=== PATIENT | female | born 1985 | race Caucasian/White ===

== ENCOUNTER 2017-09-05 15:44 | Emergency (ER) | payer OTHER ==
[2017-09-05 16:19] VITALS: O2SAT 99
[2017-09-05 17:05] VITALS: BP 101/68; PULSE 84; RESP 18; TEMP 98.1
--- NOTE | 2017-09-05 17:17 | C.PDOC ---
History Of Present Illness 32yo female, presents to the ED for evaluation of sore throat and malaise present for the past 2 weeks. 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 States she took Robitussin and Tylenol for her symptoms without relief. She also reports an intermittent fever but denies any today. Also reports associated cough with productive green phlegm. She denies any recent foreign travels. Patient offers no other medical complaints. Time Seen by Provider: 09/05/17 16:20 Chief Complaint (Nursing): Cough, Cold, Congestion History Per: Patient History/Exam Limitations: no limitations Onset/Duration Of Symptoms: Persistent Current Symptoms Are (Timing): Still Present Sick Contacts (Context): Individual(s) At Work Associated Symptoms: Fever (intermittent) Past Medical History Reviewed: Historical Data, Nursing Documentation, Vital Signs Vital Signs: Last Vital Signs Temp 98.1 F 09/05/17 17:05 Pulse 84 09/05/17 17:05 Resp 18 09/05/17 17:05 BP 101/68 09/05/17 17:05 Pulse Ox 99 09/05/17 17:33 - Medical History PMH: No Chronic Diseases Surgical History: No Surg Hx Family History: States: No Known Family Hx - Social History Hx Alcohol Use: No Hx Substance Use: No - Immunization History Hx Influenza Vaccination: No Review Of Systems Except As Marked, All Systems Reviewed And Found Negative. Constitutional: Positive for: Fever Respiratory: Positive for: Cough, Sputum (green) Physical Exam - Physical Exam Appears: Non-toxic, No Acute Distress Skin: Warm, Dry Throat: Normal, No Erythema, No Exudate Neck: Normal ROM, Supple Lymphatic: No Adenopathy Cardiovascular: Rhythm Regular Respiratory: Normal Breath Sounds, No Wheezing Neurological/Psych: Oriented x3, Normal Speech, Normal Cognition ED Course And Treatment O2 Sat by Pulse Oximetry: 99 (RA) Pulse Ox Interpretation: Normal Medical Decision Making Medical Decision Making: Impression: 32yo female with complaints of cough for the past 2 weeks Plan: -- CXR 4453 CXR HISTORY: productive cough COMPARISON: Chest x-ray performed 07/01/16 TECHNIQUE: Chest PA and lateral FINDINGS: LUNGS: No focal consolidation. Please note that chest x-ray has limited sensitivity for the detection of pulmonary masses. PLEURA: No significant pleural effusion identified. No definite pneumothorax . CARDIOVASCULAR: Heart size appears within normal limits. OSSEOUS STRUCTURES: No acute osseous abnormality identified. VISUALIZED UPPER ABDOMEN: Unremarkable. OTHER FINDINGS: None. IMPRESSION: No focal consolidation, significant pleural effusion, or definite pneumothorax identified. Disposition Counseled Patient/Family Regarding: Studies Performed, Diagnosis, Need For Followup, Rx Given - Disposition Referrals: [facility] [Outside] Disposition: HOME/ ROUTINE Disposition Time: 17:15 Condition: STABLE Prescriptions: Benzonatate [Tessalon Perles] 100 mg PO BID PRN #15 sgl PRN Reason: Cough Instructions: Upper Respiratory Infection (ED) Forms: [email or web address] Connect (Syri[place]), Work Excuse Print Language: MONTSERRATIAN - POA Present On Arrival: None - Clinical Impression Clinical Impression: Viral syndrome - Scribe Statement The provider has reviewed the documentation as recorded by the Malu Lawrence Provider Attestation: All medical record entries made by the aMlu were at my direction and personally dictated by me. I have reviewed the chart and agree that the record accurately reflects my personal performance of the history, physical exam, medical decision making, and the department course for this patient. I have also personally directed, reviewed, and agree with the discharge instructions and disposition.
== END 2017-09-05 17:30 | disposition home or self-care (01) ==
LOC: C.ER 15:44
DX: B34.9 Viral infection, unspecified (principal)

== ENCOUNTER 2018-05-27 17:02 | Emergency (ER) | payer SELFPAY ==
[2018-05-27 17:22] VITALS: BP 110/70; PULSE 84; RESP 16; TEMP 98.9; O2SAT 100
[2018-05-27] MEDS ORDERED: Bacitracin 500 Units/gm Oint Foilpak UD TOP ONE (17:41)
--- NOTE | 2018-05-27 17:44 | C.PDOC ---
History Of Present Illness 32 y/o female c/o pain and bleeding from left nipple after taking off bra this afternoon. pt denies any trauma. no prior hx of this. no analgesic tried. no swelling to breast, no fever. Time Seen by Provider: 05/27/18 17:32 Chief Complaint (Nursing): Breast Problem History/Exam Limitations: no limitations Onset/Duration Of Symptoms: Hrs (1) Current Symptoms Are (Timing): Still Present Severity: Mild Past Medical History Reviewed: Historical Data, Nursing Documentation, Vital Signs Vital Signs: Last Vital Signs Temp 98.9 F 05/27/18 17:19 Pulse 84 05/27/18 17:19 Resp 16 05/27/18 17:19 BP 110/70 05/27/18 17:19 Pulse Ox 100 05/27/18 18:11 - Medical History PMH: No Chronic Diseases Family History: States: Unknown Family Hx - Social History Hx Alcohol Use: No Hx Substance Use: No - Immunization History Hx Influenza Vaccination: No Review Of Systems Constitutional: Negative for: Fever, Chills Cardiovascular: Negative for: Chest Pain Respiratory: Negative for: Cough Genitourinary: Positive for: Other (breast pain left) Skin: Positive for: Other (bleeding from left nipple) Neurological: Negative for: Weakness, Numbness Physical Exam - Physical Exam Appears: Non-toxic, No Acute Distress Skin: Warm, Dry Head: Atraumatic, Normacephalic Eye(s): bilateral: Normal Inspection Chest: Other (right breast non tender. left breast tender in distal area and to nipple, 0.5 cm excoriation noted on distal area of left nipple, no acute bleeding, no discharge from nipple. no erythema, warmth or fluctuance noted. no masses palapted. ) Respiratory: No Decreased Breath Sounds, No Wheezing ED Course And Treatment O2 Sat by Pulse Oximetry: 100 Disposition Counseled Patient/Family Regarding: Diagnosis, Need For Followup - Disposition Disposition: HOME/ ROUTINE Disposition Time: 18:07 Condition: GOOD Additional Instructions: Please apply bacitracin to scratch on left nipple. Please take Tylenol for pain. 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 Cool compresses to painful area. Prescriptions: Acetaminophen [Tylenol 325mg tab] 650 mg PO Q6 #30 tab Bacitracin OINT 1 applic TOP BID #1 tube Instructions: Skin Abrasions (DC) Forms: [employer] Connect (Nepali) - Clinical Impression Clinical Impression: Abrasion of breast, left breast, initial encounter
[2018-05-27] MEDS ORDERED: Bacitracin 500 Units/gm Oint Foilpak UD ONE (17:54)
== END 2018-05-27 18:20 | disposition home or self-care (01) ==
LOC: C.ER 17:02
DX: S20.112A Abrasion of breast, left breast, initial encounter (principal); X58.XXXA Exposure to other specified factors, initial encounter